=== PATIENT | female | born 1990 | race African-American/Black ===

== ENCOUNTER 2018-11-13 10:56 | Observation (INO) | payer BC, MEDICAID ==
[~2018-11-13] VITALS: Ht 165.1 cm; Wt 119.3 kg
== END 2018-11-13 12:14 | disposition home or self-care (01) ==
LOC: 8 EST LDRP 10:56
PROVIDERS: ADMIT Obstetrics & Gynecology; ATTEND Obstetrics & Gynecology
DX: O36.8130 Decreased fetal movements, third trimester, not applicable or unspecified (principal); Z3A.35 35 weeks gestation of pregnancy
CPT/HCPCS: 99281; G0378

== ENCOUNTER 2018-12-07 07:06 | Inpatient (IN) | payer BC, MEDICAID ==
[~2018-12-07] VITALS: Ht 162.6 cm; Wt 119.3 kg
[2018-12-07] MEDS ORDERED: MORPHINE SULFATE/PF 1MG/ML 10ML AMP ONE (07:27)
[2018-12-07] MEDS ORDERED: OXYTOCIN 10 UNITS/ML 1ML ONE (07:29)
[2018-12-07] MEDS ORDERED: CEFAZOLIN SODIUM 1000MG/VIAL ONE (07:29)
[2018-12-07] MEDS ORDERED: METOCLOPRAMIDE HCL 10MG/2ML VIAL ONE (07:30)
[2018-12-07] MEDS ORDERED: ONDANSETRON HCL 4MG/2ML INJ ONE (07:30)
[2018-12-07] MEDS ORDERED: DEXAMETHASONE 4MG/ML 1ML VIAL ONE (07:30)
[2018-12-07] MEDS ORDERED: SODIUM CHLORIDE 0.9% 10ML VIAL ONE (07:34)
[2018-12-07] MEDS ORDERED: RHO(D) IMMUNE GLOBULIN 300 MCG/SYR IM ONE (08:00)
[2018-12-07] MEDS ORDERED: DEXT 5%/LR + PITOCIN 20UNITS/L 1,000 ML IV SCH ×2 (08:05→09:46)
[2018-12-07 08:08] LABS: BASOPHILS % 0.3 % (0.0-2.0); CLARITY URINE CLOUDY (CLEAR); COLOR URINE ORANGE (YELLOW); EOSINOPHILS % 1.2 % (0.0-5.0); HEMATOCRIT. 33.9 % (36.0-48.0); HEMOGLOBIN. 10.9 g/dL (12.0-16.0); KETONES URINE 1+ (NEGATIVE); LEUKOCYTE ESTERASE URINE 1+ (NEGATIVE); LYMPHOCYTES % 15.4 % (20.0-50.0); MEAN CORPUSCULAR HEMOGLOBIN 29.3 pg (28.0-32.0); MEAN CORPUSCULAR VOLUME 91.1 fL (81.0-99.0); MONOCYTES % 10.3 % (2.0-8.0); NEUTROPHILS % 72.8 % (40.0-76.0); NITRITE URINE NEGATIVE (NEGATIVE); OCCULT BLOOD URINE NEGATIVE (NEGATIVE); PH URINE 6.5 (4.5-8.0); PLATELET 224 x1000/uL (130-400); PROTEIN URINE 1+ (NEGATIVE); RED BLOOD CELL COUNT 3.72 mill/uL (4.2-5.4); RED CELL DISTRIBUTION WIDTH 15.8 % (11.6-14.6); SPECIFIC GRAVITY URINE 1.024 (1.005-1.030)
[2018-12-07 08:17] LABS: PARTIAL THROMBOPLASTIN TIME 28.4 sec (23.4-31.0); PROTHROMBIN TIME 9.9 sec (9.6-11.0)
[2018-12-07] MEDS: LACTATED RINGERS 1,000 ML IV SCH ×2 (08:34→22:54)
[2018-12-07] MEDS ORDERED: CITRIC ACID/SODIUM CITRATE SOLN 30ML UDC PO NR (08:43)
[2018-12-07 09:08] LABS: *AMPHETAMINES SCREEN URINE NEGATIVE (NEGATIVE); *BARBITURATES SCREEN URINE NEGATIVE (NEGATIVE); *BENZODIAZEPINES SCREEN URINE NEGATIVE (NEGATIVE)
[2018-12-07 09:09] LABS: *COCAINE SCREEN URINE NEGATIVE (NEGATIVE); CANNABINOID URINE SCREEN NEGATIVE (NEGATIVE); METHADONE URINE SCREEN NEGATIVE (NEGATIVE); OPIATES URINE SCREEN NEGATIVE (NEGATIVE); PHENCYCLIDINE URINE SCREEN NEGATIVE (NEGATIVE)
[2018-12-07] MEDS ORDERED: DIPHENHYDRAMINE 25MG CAPSULE PO PRN (10:00)
[2018-12-07] MEDS ORDERED: IBUPROFEN 400MG TABLET PO PRN (10:00)
[2018-12-07] MEDS ORDERED: HEMORRHOIDAL SUPP PR PRN (10:00)
[2018-12-07] MEDS ORDERED: HYDROCODONE/ACETAMINOPHEN 5/325MG TABLET PO PRN (10:00)
[2018-12-07] MEDS ORDERED: BISACODYL 10MG SUPP PR PRN (10:00)
[2018-12-07] MEDS ORDERED: HYDROMORPHONE HCL/PF 2MG/ML CPJ IV PRN (10:15)
[2018-12-07] MEDS ORDERED: ONDANSETRON HCL 4MG/2ML INJ IV PRN ×2 (10:15→15:00)
[2018-12-07 10:20] LABS: HEPATITIS B SURFACE ANTIGEN NEGATIVE
[2018-12-07] MEDS: KETOROLAC 30MG/ML VIAL IV PRN ×2 (11:44→23:07)
[2018-12-07 13:00] VITALS: BP 103/50
[2018-12-07] MEDS: SIMETHICONE 80MG TABLET CHEW PO SCH ×3 (13:00→21:20)
[2018-12-07] MEDS: MAGNESIUM/ALUMINUM HYDROXIDE/SIMETHICONE 30ML UDC PO SCH ×3 (13:00→21:19)
[2018-12-07 13:30] VITALS: BP 105/51
[2018-12-07 14:00] VITALS: BP 101/53
[2018-12-07 16:25] VITALS: BP 108/50
[2018-12-07 19:30] VITALS: BP 100/50
[2018-12-07] MEDS: DOCUSATE SODIUM 100MG CAPSULE PO SCH (21:20)
[2018-12-08 00:28] VITALS: BP 96/55
[2018-12-08 04:00] VITALS: BP 90/50
[2018-12-08 07:30] VITALS: BP 103/59
[2018-12-08 07:38] LABS: BASOPHILS % 0.2 % (0.0-2.0); EOSINOPHILS % 0.6 % (0.0-5.0); HEMOGLOBIN. 8.8 g/dL (12.0-16.0); LYMPHOCYTES % 20.5 % (20.0-50.0); MEAN CORPUSCULAR HEMOGLOBIN 29.1 pg (28.0-32.0); MEAN CORPUSCULAR VOLUME 92.6 fL (81.0-99.0); MEAN PLATELET VOLUME 8.1 fl (7.4-10.4); MONOCYTES % 14.6 % (2.0-8.0); NEUTROPHILS % 64.1 % (40.0-76.0); PLATELET 184 x1000/uL (130-400); RED BLOOD CELL COUNT 3.02 mill/uL (4.2-5.4); RED CELL DISTRIBUTION WIDTH 15.8 % (11.6-14.6)
[2018-12-08] MEDS: ACETAMINOPHEN WITH CODEINE 300/30MG TABLET PO PRN ×3 (09:27→20:58)
[2018-12-08] MEDS: MAGNESIUM/ALUMINUM HYDROXIDE/SIMETHICONE 30ML UDC PO SCH ×4 (13:11→20:47)
[2018-12-08] MEDS: SIMETHICONE 80MG TABLET CHEW PO SCH ×3 (13:11→20:48)
[2018-12-08] MEDS: FERROUS SULFATE 325MG TABLET PO SCH ×2 (13:11→17:59)
[2018-12-08 15:52] VITALS: BP 96/57
[2018-12-08] MEDS: DOCUSATE SODIUM 100MG CAPSULE PO SCH (20:49)
[2018-12-08 22:00] VITALS: BP 105/63
[2018-12-09] MEDS: ACETAMINOPHEN WITH CODEINE 300/30MG TABLET PO PRN ×3 (04:02→19:43)
[2018-12-09 04:30] VITALS: BP 99/59
[2018-12-09 08:20] VITALS: BP 109/53
[2018-12-09] MEDS: MAGNESIUM/ALUMINUM HYDROXIDE/SIMETHICONE 30ML UDC PO SCH ×3 (09:39→21:11)
[2018-12-09] MEDS: SIMETHICONE 80MG TABLET CHEW PO SCH ×3 (09:40→21:11)
[2018-12-09] MEDS: FERROUS SULFATE 325MG TABLET PO SCH ×2 (11:59→19:41)
[2018-12-09 16:00] VITALS: BP 117/71
[2018-12-09] MEDS ORDERED: BISACODYL 5MG TABLET PO PRN (19:30)
[2018-12-09 19:40] VITALS: BP 102/69
[2018-12-09] MEDS: DOCUSATE SODIUM 100MG CAPSULE PO SCH (21:11)
[2018-12-09 23:57] VITALS: BP 95/59
[2018-12-10 05:00] VITALS: BP 105/65
[2018-12-10 07:30] VITALS: BP 118/64
[2018-12-10] MEDS: DOCUSATE SODIUM 100MG CAPSULE PO SCH (08:31)
[2018-12-10] MEDS: FERROUS SULFATE 325MG TABLET PO SCH (08:31)
[2018-12-10] MEDS: MAGNESIUM/ALUMINUM HYDROXIDE/SIMETHICONE 30ML UDC PO SCH (08:31)
[2018-12-10] MEDS: SIMETHICONE 80MG TABLET CHEW PO SCH (08:32)
[2018-12-10] MEDS: ACETAMINOPHEN WITH CODEINE 300/30MG TABLET PO PRN (08:32)
[2018-12-10 11:00] VITALS: BP 110/62
== END 2018-12-10 11:40 | disposition home or self-care (01) | DRG 540 ==
LOC: OBSVTOIN 07:06 → 8 EST LDRP 07:06 → 8EST 14:13
PROVIDERS: ADMIT Obstetrics & Gynecology; ATTEND Obstetrics & Gynecology
PROC: 0UB70ZZ Excision of Bilateral Fallopian Tubes, Open Approach (ICD-10-PCS; principal; 2018-12-07)
PROC: 10D00Z1 Extraction of Products of Conception, Low, Open Approach (ICD-10-PCS; 2018-12-07)
DX: O34.211 Maternal care for low transverse scar from previous cesarean delivery (principal); Z30.2 Encounter for sterilization; Z37.0 Single live birth; Z3A.39 39 weeks gestation of pregnancy
CPT/HCPCS: 36415; 80305; 81003; 82962; 86592; 86703; 86762; 86850; 86900; 87340; 88302; 88307; J0690; J1100; J1885; J2274; J2405; J2590; J2765; J7120; A4315